=== PATIENT | female | born 1955 | race Caucasian/White ===

== ENCOUNTER 2019-02-23 08:25 | Day surgery (SDC) | payer BC ==
[~2019-02-23] VITALS: Ht 170.2 cm; Wt 69.4 kg
[~2019-02-23 08:25] MED LIST: ASPIRIN ADULT L81 M3 PO; CIPROFLOXACN500 MG PO; FISH OIL1000 MG PO; MAXEPA1000 M1 PO; MULTI VIT PO; MULTI VITAMIN1 TAB PO; NO MEDS; OMEPRAZOLE DR40 MG PO
[2019-02-23 09:43] VITALS: BP 128/60
== END 2019-02-23 09:59 | disposition home or self-care (01) | DRG 392 ==
LOC: ENDO 08:25 → ORM 09:30 → ENDO 09:59
PROVIDERS: ATTEND Surgery
PROC: 0DB48ZX Excision of Esophagogastric Junction, Via Natural or Artificial Opening Endoscopic, Diagnostic (ICD-10-PCS; principal; 2019-02-23)
DX: K21.0 Gastro-esophageal reflux disease with esophagitis (principal); K44.9 Diaphragmatic hernia without obstruction or gangrene; Z79.899 Other long term (current) drug therapy

== ENCOUNTER 2022-04-10 16:31 | Emergency (ER) | payer MEDICARE ==
[~2022-04-10] VITALS: Ht 170.2 cm; Wt 70.5 kg
[2022-04-10] MEDS ORDERED: TRAMADOL HYDROC50 M1 PO (17:49)
[2022-04-10 17:56] VITALS: BP 164/88
== END 2022-04-10 18:15 | disposition home or self-care (01) ==
LOC: ED 16:31
PROC: 2W3DX1Z Immobilization of Left Lower Arm using Splint (ICD-10-PCS; principal; 2022-04-10)
DX: S52.502A Unspecified fracture of the lower end of left radius, initial encounter for closed fracture (principal); S52.612A Displaced fracture of left ulna styloid process, initial encounter for closed fracture; S62.112A Displaced fracture of triquetrum [cuneiform] bone, left wrist, initial encounter for closed fracture; S99.921A Unspecified injury of right foot, initial encounter; E78.5 Hyperlipidemia, unspecified; K21.9 Gastro-esophageal reflux disease without esophagitis; W11.XXXA Fall on and from ladder, initial encounter; Y92.009 Unspecified place in unspecified non-institutional (private) residence as the place of occurrence of the external cause

== ENCOUNTER 2022-08-02 10:48 | Emergency (ER) | payer MEDICARE ==
[~2022-08-02] VITALS: Ht 170.2 cm; Wt 70.0 kg
[2022-08-02] VITALS (8 sets, daily range): BP systolic 151–168; BP diastolic 80–94
[~2022-08-02 10:48] MED LIST changes: +TRAMADOL HYDROC50 M1 PO
[2022-08-02] MEDS ORDERED: MACROBID100 M1 PO (11:45)
[2022-08-02] MEDS ORDERED: OMEPRAZOLE DR40 MG (11:45)
== END 2022-08-02 12:55 | disposition home or self-care (01) ==
LOC: ED 10:48
DX: S93.402A Sprain of unspecified ligament of left ankle, initial encounter (principal); K21.9 Gastro-esophageal reflux disease without esophagitis; E78.5 Hyperlipidemia, unspecified; X50.0XXA Overexertion from strenuous movement or load, initial encounter; Y92.007 Garden or yard of unspecified non-institutional (private) residence as the place of occurrence of the external cause